=== PATIENT | female | born 1975 | race Caucasian/White ===

== ENCOUNTER 2020-11-24 04:17 | Observation (INO) | payer MEDICARE ==
[~2020-11-24] VITALS: Ht 172.7 cm; Wt 111.1 kg
[~2020-11-24 04:17] MED LIST: BENTYL 20MG TAB20 MG PO; K-DUR TAB 20 M20 MEQ PO; LODINE CAP 300300 MG PO; NAPROSYN500 MG PO; ZOFRAN ODT 4 MG4 MG PO; ZOFRAN ODT 4 MG4 MG SL
[2020-11-24 04:50] LABS: HEMOGLOBIN 12.9 gm/dl (12.3-15.3); RED BLOOD COUNT 4.13 M/UL (4.00-5.10); WHITE BLOOD COUNT 4.3 K/UL (4.5-11.0)
[2020-11-24 05:10] LABS: BUN/CREATININE RATIO 12 (0-10)
--- NOTE | 2020-11-24 15:04 | NUR ---
[address] prather. ok to id home. no rx
== END 2020-11-24 14:05 | disposition home or self-care (01) ==
LOC: ER1 04:17 → CDU 08:32
PROVIDERS: ADMIT Internal Medicine
DX: R07.89 Other chest pain (principal); I10 Essential (primary) hypertension; F43.10 Post-traumatic stress disorder, unspecified; L93.2 Other local lupus erythematosus; E16.2 Hypoglycemia, unspecified; G62.9 Polyneuropathy, unspecified; K80.20 Calculus of gallbladder without cholecystitis without obstruction; M06.9 Rheumatoid arthritis, unspecified; E78.5 Hyperlipidemia, unspecified; Z86.19 Personal history of other infectious and parasitic diseases; Z86.69 Personal history of other diseases of the nervous system and sense organs; Z87.442 Personal history of urinary calculi; Z87.891 Personal history of nicotine dependence; Z88.2 Allergy status to sulfonamides; Z91.040 Latex allergy status
CPT/HCPCS: 36415; 71045; 80053; 82550; 82553; 83874; 84484; 85025; 93005; 96372; 96374; 99285; G0378; Q9967